=== PATIENT | male | born 1955 | race Caucasian/White ===

== ENCOUNTER 2017-02-20 05:37 | Day surgery (SDC) | payer BC ==
[2017-02-17 10:11] VITALS: BMI 30.1
[2017-02-20] MEDS ORDERED: Sodium Chloride 0.9% 10 ML ONE (06:29)
[2017-02-20] MEDS ORDERED: Famotidine/PF 20 mg/2ml Vial ONE (06:43)
[2017-02-20] MEDS ORDERED: Phenylephrine 10 MG/NS 250 ML 0 ML ONE (06:49)
[2017-02-20] MEDS ORDERED: Albumin 5% 0 ML ONE (06:49)
[2017-02-20 06:50] LABS: #Basophils 0.1 thou/uL (0.0-0.2); #Eosinphils 0.5 thou/uL (0.0-0.7); #Monocytes 0.8 thou/uL (0.11-0.59); #Neutrophils 3.4 thou/uL (1.40-6.50); %Basophils 1.5 % (0.0-1.0); %Eosinophils 8.3 % (0.0-10.0); %Monocytes 13.3 % (0.0-10.0); Hematocrit 44.2 % (42.0-52.0); Mean Platelet Volume 9.1 fL (7.4-10.4); Red Blood Cell (RBC) Count 4.66 mill/uL (4.70-6.10); White Blood Cell (WBC) Count 5.7 thou/uL (4.8-10.8)
[2017-02-20] MEDS ORDERED: CEFAZOLIN/Water 2 GM/20 ML SYRINGE ONE (06:52)
[2017-02-20] MEDS ORDERED: Fentanyl 250 MCG/5 ML VIAL ONE (06:53)
[2017-02-20 07:02] LABS: Anion Gap 13 mmol/L (10-20); BUN (Urea Nitrogen) 16 mg/dL (8.4-25.7); Calc. Creatinine Clearance 129 mL/min (70-130); Calcium 9.3 mg/dL (7.8-10.44); Carbon Dioxide 23 mmol/L (23-31); Chloride 106 mmol/L (98-107); Estimated GFR-MDRD Greater than 90
[2017-02-20] MEDS ORDERED: Lidocaine 2% Jelly 5 ML TUBE ONE (07:08)
[2017-02-20] MEDS ORDERED: Promethazine HCl 25 MG/ML VIAL SLOW IVP PRN (08:16)
[2017-02-20] MEDS ORDERED: Meperidine HCl/PF 25 MG/ML VIAL SLOW IVP PRN (08:16)
[2017-02-20] MEDS ORDERED: HYDROmorphone 2 MG/ML VIAL SLOW IVP PRN (08:16)
[2017-02-20] MEDS ORDERED: Morphine Sulfate 2 MG/ML SYRINGE SLOW IVP PRN (08:16)
[2017-02-20] MEDS ORDERED: Promethazine HCl 25 MG/ML VIAL IM PRN (08:16)
[2017-02-20] MEDS ORDERED: Ondansetron HCl/PF 4 MG/2 ML Vial IVP PRN (08:16)
--- NOTE | 2017-02-20 08:30 | OP ---
DATE OF PROCEDURE: 02/20/2017 SURGEON: Mauricio Sexton M.D. [employer] MANAGER: Cayetano Bhakta PA-C PROCEDURES: Left L5-S1 laminectomy, facetectomy, foraminotomy, interbody arthrodesis, posterolateral arthrodesis, pedicle screw instrumentation, demineralized bone matrix, and local morselized autograf t. PROCEDURE IN DETAIL: The patient was brought the operating room, intubated. He was rolled in the pr one position on gel-filled chest rolls. Incision made exposing L5 and S1 and our level was confirmed by x-ray. It should be noted the patient has a transitional lumbar segment. We performed left L5-S 1 laminectomy, facetectomy, and foraminotomy, completely decompressing left L5 nerve root. We explor ed the disk space and prepared the intervertebral space for arthrodesis because of the small space di d not place an intravertebral device. We next placed pedicle screws at left L5 and left S1 using lat eral fluoroscopic guidance and the positioning was confirmed with rotational x-ray. A polo was secure d between the screws, connected by nuts which were final tightened. The wound was then extensively i rrigated, immaculate hemostasis was secured. A combination of demineralized bone matrix and local mo rselized autograft was laid over the right laminar and posterolateral surfaces for the purpose of art hrodesis. Vancomycin powder was applied and the wound was closed in anatomic layers.
[2017-02-20] MEDS ORDERED: Ketorolac Tromethamine 30 MG/ML VIAL ONE (08:59)
[2017-02-20] MEDS ORDERED: HYDROcodone/Acetaminophen 5/325 mg Tablet ONE (10:08)
[2017-02-20] MEDS ORDERED: PHENYLEPHRINE-NS 100 MCG/ML 10 ML SYRINGE ONE (16:26)
[2017-02-20] MEDS ORDERED: Glycopyrrolate 0.2 MG/ML 5 ML SYRINGE ONE (16:26)
[2017-02-20] MEDS ORDERED: Ondansetron HCl/PF 4 MG/2 ML Vial ONE (16:26)
[2017-02-20] MEDS ORDERED: Propofol 200 MG/20 ML VIAL ONE (16:26)
[2017-02-20] MEDS ORDERED: Lidocaine 1% PF 5 ML VIAL ONE (16:26)
[2017-02-20] MEDS ORDERED: Dexamethasone 20 MG/5 ML VIAL ONE (16:26)
[2017-02-20] MEDS ORDERED: ePHEDrine/0.9% NaCl/PF SYRINGE 50 mg/10 ml ONE (16:26)
--- NOTE | 2017-02-20 18:23 | EKG ---
Test Reason : PREOP Blood Pressure : / mmHG Vent. Rate : 075 BPM Atrial Rate : 075 BPM P-R Int : 164 ms QRS Dur : 100 ms QT Int : 380 ms P-R-T Axes : 053 -17 092 degrees QTc Int : 424 ms Normal sinus rhythm Minimal voltage criteria for LVH, may be normal variant Cannot rule out Anterior infarct , age undetermined /Doubtful, favor poor R wave progression. Nonspecific ST -T wave changes with straightening V5 and V6. Abnormal ECG Confirmed by PIETRO CHACON ([id number]) on 02/20/2017 6:23:26 PM Referred By: CHRISTIANO Confirmed By:PIETRO CHACON
== END 2017-02-20 10:45 | disposition home or self-care (01) ==
LOC: SDC 05:37
PROVIDERS: ATTEND Neurological Surgery
PROC: 00NY0ZZ Release Lumbar Spinal Cord, Open Approach (ICD-10-PCS; principal; 2017-02-20)
PROC: 0SG3071 Fusion of Lumbosacral Joint with Autologous Tissue Substitute, Posterior Approach, Posterior Column, Open Approach (ICD-10-PCS; principal; 2017-02-20)
DX: M54.16 Radiculopathy, lumbar region (principal)
CPT/HCPCS: 36415; 76001; 80048; 85025; 93005; 93010; A4216; C1713; C1768; J0131; J1100; J1885; J2001; J2405; J2704; J3010; J3370; J3490; P9045; S0028

== ENCOUNTER 2017-03-07 10:40 | Outpatient (CLI) | payer BC ==
--- NOTE | 2017-03-07 13:03 | RAD ---
TWO VIEWS LUMBAR SPINE: History: Status post-surgery. Follow up exam. Back pain. Comparison: None. FINDINGS: Two views of the lumbar spine demonstrates unilateral left sided transpedicular screw at L5-S1. No pe rihardware lucency. Vacuum disc phenomenon at L4-5 and L5-S1. No spondylolisthesis. Mild leftward cur vature of the lower lumbar spine. Mild loss of disc space height involving the upper to mid lumbar sp ine. IMPRESSION: Uncomplicated lumbar fusion hardware. POS: HOLDEN
== END 2017-03-07 10:41 | disposition home or self-care (01) ==
LOC: TBSIIMAG 10:40
PROVIDERS: ATTEND Physician Assistant
DX: M54.9 Dorsalgia, unspecified (principal); Z98.1 Arthrodesis status
CPT/HCPCS: 72100